=== PATIENT | male | born 1970 | race African-American/Black ===

== ENCOUNTER 2018-04-11 10:00 | Emergency (ER) | payer OTHER ==
[~2018-04-11] VITALS: Ht 165.1 cm; Wt 64.1 kg
[2018-04-11 10:46] LABS: HEMATOCRIT 38.1 % (38.0-50.0); MCH 28.2 PG (29.0-34.0); MCHC 34.1 G/DL (30.0-36.0); MCV 82.6 FL (86-99); RBC DIS.WIDTH-CV 13.6 % (11.8-14.6); RBC DIS.WIDTH-SD 40.8 % (39-53); RED BLOOD COUNT 4.61 M/uL (4.00-5.50); WHITE BLOOD COUNT 5.9 K/uL (4.1-10.2)
[2018-04-11 10:55] LABS: ALBUMIN 3.7 g/dL (3.2-4.8); CHLORIDE 108 mEq/L (99-109); POTASSIUM 3.9 mEq/L (3.7-5.4); SODIUM 136 mEq/L (136-147)
[2018-04-11 10:57] LABS: GLUCOSE 120 mg/dL (70-99); TOTAL PROTEIN 6.7 g/dL (6.4-8.3)
[2018-04-11 10:59] LABS: TOTAL BILIRUBIN 0.6 mg/dL (0.0-1.0)
[2018-04-11 11:01] LABS: ALKALINE PHOSPHATASE 110 IU/L (3-129); CREATININE 1.2 mg/dL (0.6-1.3); GFR ESTIMATE (CALCULATED) > 59 mL/min/ (58.99-99999)
[2018-04-11 11:02] LABS: UREA NITROGEN (BUN) 14 mg/dL (9-23)
[2018-04-11 11:03] LABS: AST (GOT) 25 IU/L (2-34)
[2018-04-11 11:04] LABS: ALT (GPT) 21 IU/L (3-49); LIPASE 44 U/L (1.0-51.0)
[2018-04-11 11:37] LABS: PLATELET COUNT 252 K/uL (156-360)
[2018-04-11 12:59] LABS: APPEARANCE CLEAR ((CLEAR)); BILIRUBIN NEGATIVE; BLOOD NEGATIVE; COLOR YELLOW ((YELLOW)); GLUCOSE (STRIP) >=500; KETONES NEGATIVE; LEUKOCYTES NEGATIVE; NITRITE NEGATIVE; PROTEIN (STRIP) 100; SPECIFIC GRAVITY 1.028 (1.000-1.030); UROBILINOGEN 0.2 MG/DL (0.2-1.0)
[2018-04-11 13:04] LABS: BACTERIA NONE SEEN /HPF; EPITHELIAL CELLS RARE /HPF; HYALINE CASTS 0-5 /LPF; MUCUS TRACE /LPF; RED BLOOD CELLS 0-5 /HPF (0-5); UCUL ADDED? NO; WHITE BLOOD CELLS 0-5 /HPF (0-5)
[2018-04-11] MEDS ORDERED: ZOFRAN ODT4 MG PO (13:23)
[2018-04-11] MEDS ORDERED: BENTYL10 MG PO (13:24)
[2018-04-11 13:37] VITALS: BP 132/82
== END 2018-04-11 13:38 | disposition home or self-care (01) ==
LOC: EME 10:00
PROVIDERS: Physician Assistant
DX: R11.2 Nausea with vomiting, unspecified (principal); R19.7 Diarrhea, unspecified; E86.0 Dehydration
CPT/HCPCS: 80053; 81003; 82948; 83630; 83690; 85027; 87493; 87506; 99281; 99284; J2405; J7030